=== PATIENT | female | born 1950 | race Caucasian/White ===

== ENCOUNTER → 2016-03-02 | Outpatient (CLI) | payer OTHER ==
[~2016-03-02] MED LIST: /ADVA50050 IN; ASPI325T OR; CELE20TA OR; LISI20TA5 OR; PERC5TAB8 OR; pravachol OR
--- NOTE | 2016-03-02 14:26 | REPMRS ---
Patient History The patient states she has not had a clinical breast exam in over a year. Patient is postmenopausal. Family history of colorectal cancer in mother at age 70. Digital Woman Screen Mammo: March 02, 2016 - Exam #: [id number] Bilateral CC and MLO view(s) were taken. Technologist: Carlota Dan, Technologist Prior study comparison: December 10, 2014, digital woman screen mammo performed at [facility] to [facility]. January 23, 2008, bilateral screening mammogram performed at [facility]. FINDINGS: There are scattered fibroglandular densities. There has been no change in the appearance of the mammogram from the prior studies. There is a mild amount of scattered fibroglandular density which is fairly symmetric. There is no interval development of dominant mass, architectural distortion, or clustered microcalcification suggestive of malignancy. ASSESSMENT: BI-RADS/ACR category 1 mammogram. Negative. Recommendation Routine screening mammogram in 1 year (for women over age 40). This mammogram was interpreted with the aid of an FDA-approved computer-aided dectection system. Electronically Signed By: Farhad Givens MD 03/02/16 1542
== END ==
LOC: M WHC 12:51
PROVIDERS: ATTEND Physician Assistant
DX: Z12.31 Encounter for screening mammogram for malignant neoplasm of breast (principal)

== ENCOUNTER → 2016-05-24 | Outpatient (REF) | payer OTHER ==
[2016-05-24 15:39] LABS: ALBUMIN 3.7 GM/DL (3.2-5.2); ALBUMIN/GLOBULIN RATIO 1.03 (1.00-1.93); ALKALINE PHOSPHATASE 90 U/L (45-117); ALT/SGPT 47 U/L (12-78); ANION GAP 8 MEQ/L (8-16); AST/SGOT 48 U/L (15-37); BILIRUBIN,TOTAL 0.4 MG/DL (0.2-1.0); BLOOD UREA NITROGEN 13 MG/DL (7-18); CARBON DIOXIDE LEVEL 32 MEQ/L (21-32); CHLORIDE LEVEL 95 MEQ/L (98-107); CHOLESTEROL LEVEL 203 MG/DL (<200); GLOMERULAR FILTRATION RATE > 60.0 (>45); GLUCOSE, FASTING 98 MG/DL (80-110); POTASSIUM SERUM 4.1 MEQ/L (3.5-5.1); SODIUM LEVEL 135 MEQ/L (136-145); TOTAL PROTEIN 7.3 GM/DL (6.4-8.2); TRIGLYCERIDES LEVEL 212 MG/DL (<150)
== END ==
LOC: M SFHCLACO 09:34
PROVIDERS: ATTEND Physician Assistant
DX: I10 Essential (primary) hypertension (principal); E78.2 Mixed hyperlipidemia

== ENCOUNTER → 2016-08-30 | Outpatient (REF) | payer OTHER ==
[2016-08-30 15:29] LABS: ALKALINE PHOSPHATASE 78 U/L (45-117); ALT/SGPT 49 U/L (12-78); ANION GAP 6 MEQ/L (8-16); AST/SGOT 54 U/L (15-37); BILIRUBIN,TOTAL 0.6 MG/DL (0.2-1.0); BLOOD UREA NITROGEN 12 MG/DL (7-18); CALCIUM LEVEL 8.9 MG/DL (8.8-10.2); CARBON DIOXIDE LEVEL 33 MEQ/L (21-32); CHLORIDE LEVEL 98 MEQ/L (98-107); CHOLESTEROL LEVEL 222 MG/DL (<200); CREATININE FOR GFR 0.62 MG/DL (0.55-1.02); GLOMERULAR FILTRATION RATE > 60.0 (>45); GLUCOSE, FASTING 93 MG/DL (80-110); POTASSIUM SERUM 3.8 MEQ/L (3.5-5.1); SODIUM LEVEL 137 MEQ/L (136-145); TRIGLYCERIDES LEVEL 269 MG/DL (<150)
[2016-08-30 15:30] LABS: ALBUMIN 3.4 GM/DL (3.2-5.2); ALBUMIN/GLOBULIN RATIO 0.87 (1.00-1.93); TOTAL PROTEIN 7.3 GM/DL (6.4-8.2)
== END ==
LOC: M SFHCLACO 09:31
PROVIDERS: ATTEND Physician Assistant
DX: I10 Essential (primary) hypertension (principal); E78.2 Mixed hyperlipidemia

== ENCOUNTER → 2016-12-27 | Outpatient (REF) | payer OTHER ==
[2016-12-27 15:12] LABS: ALBUMIN 3.6 GM/DL (3.2-5.2); ALKALINE PHOSPHATASE 119 U/L (45-117); ALT/SGPT 42 U/L (12-78); ANION GAP 10 MEQ/L (8-16); AST/SGOT 63 U/L (7-37); BILIRUBIN,TOTAL 0.5 MG/DL (0.2-1.0); BLOOD UREA NITROGEN 6 MG/DL (7-18); CALCIUM LEVEL 9.2 MG/DL (8.8-10.2); CARBON DIOXIDE LEVEL 30 MEQ/L (21-32); CHLORIDE LEVEL 97 MEQ/L (98-107); CHOLESTEROL LEVEL 256 MG/DL (<200); CREATININE FOR GFR 0.66 MG/DL (0.55-1.02); GLOMERULAR FILTRATION RATE > 60.0 (>45); GLUCOSE, FASTING 110 MG/DL (80-110); POTASSIUM SERUM 3.5 MEQ/L (3.5-5.1); SODIUM LEVEL 137 MEQ/L (136-145); TOTAL PROTEIN 7.6 GM/DL (6.4-8.2); TRIGLYCERIDES LEVEL 196 MG/DL (<150)
== END ==
LOC: M SFHCLACO 09:58
PROVIDERS: ATTEND Physician Assistant
DX: I10 Essential (primary) hypertension (principal); E78.2 Mixed hyperlipidemia

== ENCOUNTER → 2017-04-27 | Outpatient (REF) | payer OTHER ==
[2017-04-27 15:13] LABS: ALBUMIN 3.4 GM/DL (3.2-5.2); ALBUMIN/GLOBULIN RATIO 0.85 (1.00-1.93); ALKALINE PHOSPHATASE 93 U/L (45-117); ALT/SGPT 44 U/L (12-78); ANION GAP 7 MEQ/L (8-16); AST/SGOT 58 U/L (7-37); BILIRUBIN,TOTAL 0.4 MG/DL (0.2-1.0); BLOOD UREA NITROGEN 11 MG/DL (7-18); CALCIUM LEVEL 8.6 MG/DL (8.8-10.2); CARBON DIOXIDE LEVEL 32 MEQ/L (21-32); CHLORIDE LEVEL 96 MEQ/L (98-107); CHOLESTEROL LEVEL 212 MG/DL (<200); CHOLESTEROL RISK RATIO 4.608 (<5); CREATININE FOR GFR 0.67 MG/DL (0.55-1.30); GLOMERULAR FILTRATION RATE > 60.0 (>45); GLUCOSE, FASTING 91 MG/DL (70-100); HDL CHOLESTEROL 46 MG/DL (>40); LDL CHOLESTEROL 101.6 MG/DL (<100); NON-HDL-C 166 MG/DL; POTASSIUM SERUM 3.7 MEQ/L (3.5-5.1); SODIUM LEVEL 135 MEQ/L (136-145); TOTAL PROTEIN 7.4 GM/DL (6.4-8.2); TRIGLYCERIDES LEVEL 322 MG/DL (<150)
== END ==
LOC: M SFHCLACO 08:14
DX: E78.2 Mixed hyperlipidemia (principal); I10 Essential (primary) hypertension
CPT/HCPCS: 80053

== ENCOUNTER → 2017-07-27 | Outpatient (REF) | payer OTHER ==
[2017-07-27 15:05] LABS: ALBUMIN 3.5 GM/DL (3.2-5.2); ALBUMIN/GLOBULIN RATIO 0.95 (1.00-1.93); ALKALINE PHOSPHATASE 99 U/L (45-117); ALT/SGPT 41 U/L (12-78); ANION GAP 8 MEQ/L (8-16); AST/SGOT 49 U/L (7-37); BILIRUBIN,TOTAL 0.3 MG/DL (0.2-1.0); BLOOD UREA NITROGEN 13 MG/DL (7-18); CARBON DIOXIDE LEVEL 30 MEQ/L (21-32); CHLORIDE LEVEL 99 MEQ/L (98-107); CHOLESTEROL LEVEL 193 MG/DL (<200); CHOLESTEROL RISK RATIO 3.711 (<5); CREATININE FOR GFR 0.71 MG/DL (0.55-1.30); GLOMERULAR FILTRATION RATE > 60.0 (>45); GLUCOSE, FASTING 84 MG/DL (70-100); HDL CHOLESTEROL 52 MG/DL (>40); LDL CHOLESTEROL 103.2 MG/DL (<100); NON-HDL-C 141 MG/DL; POTASSIUM SERUM 3.9 MEQ/L (3.5-5.1); SODIUM LEVEL 137 MEQ/L (136-145); TOTAL PROTEIN 7.2 GM/DL (6.4-8.2); TRIGLYCERIDES LEVEL 189 MG/DL (<150)
== END ==
LOC: M SFHCLACO 08:26
DX: I10 Essential (primary) hypertension (principal); E78.2 Mixed hyperlipidemia
CPT/HCPCS: 80053

== ENCOUNTER → 2017-10-13 | Outpatient (REF) | payer OTHER | LOC: M SFHCLACO 15:16 | DX: K52.9 Noninfective gastroenteritis and colitis, unspecified (principal) | CPT/HCPCS: 87507 ==

== ENCOUNTER → 2018-02-22 | Outpatient (CLI) | payer OTHER ==
--- NOTE | 2018-02-22 14:35 | REPMRS ---
Patient History The patient states she has not had a clinical breast exam in over a year. Patient is postmenopausal. Family history of colorectal cancer at age 70 in mother, breast cancer at age 73 in sister. Digital Woman Screen Mammo: February 22, 2018 - Exam #: [id number] Bilateral CC and MLO view(s) were taken. Technologist: Letha Rosado, Technologist Prior study comparison: March 02, 2016, digital woman screen mammo performed at [facility] to [facility]. December 10, 2014, digital woman screen mammo performed at [facility] to [facility]. January 23, 2008, bilateral screening mammogram performed at [facility]. FINDINGS: There are scattered fibroglandular densities. There has been no change in the appearance of the mammogram from the prior studies. There is a mild amount of scattered fibroglandular density which is fairly symmetric. There is no interval development of dominant mass, architectural distortion, or clustered microcalcification suggestive of malignancy. 3-D tomosynthesis shows no additional findings. Assessment: BI-RADS/ACR category 1 mammogram. Negative. Recommendation Routine screening mammogram of both breasts in 1 year (for women over age 40). This patient's Lifetime Breast Cancer RIsk is estimated at 8.8 %. This mammogram was interpreted with the aid of an FDA-approved computer-aided dectection system. Electronically Signed By: Farhad Givens MD 02/22/18 0213
== END ==
LOC: M WHC 10:21
PROVIDERS: ATTEND Physician Assistant
DX: Z12.31 Encounter for screening mammogram for malignant neoplasm of breast (principal); Z78.0 Asymptomatic menopausal state; Z80.0 Family history of malignant neoplasm of digestive organs; Z80.3 Family history of malignant neoplasm of breast

== ENCOUNTER → 2021-10-21 | Outpatient (CLI) | payer OTHER ==
[~2021-10-21] MED LIST changes: -/ADVA50050 IN; +ADVA1AER2 IN
== END ==
LOC: M ADAMS 13:57
PROVIDERS: ATTEND Physician Assistant
DX: M25.511 Pain in right shoulder (principal); R93.7 Abnormal findings on diagnostic imaging of other parts of musculoskeletal system

== ENCOUNTER → 2021-11-30 | Outpatient (CLI) | payer OTHER | LOC: M PLAIMG 06:42 | PROVIDERS: ATTEND Orthopaedic Surgery | DX: M75.101 Unspecified rotator cuff tear or rupture of right shoulder, not specified as traumatic (principal) ==

== ENCOUNTER → 2021-12-02 | Outpatient (CLI) | payer OTHER | LOC: M WHC 10:29 | PROVIDERS: ATTEND Physician Assistant | DX: Z12.31 Encounter for screening mammogram for malignant neoplasm of breast (principal) ==

== ENCOUNTER → 2022-01-10 | Outpatient (CLI) | payer OTHER ==
[~2022-01-10] MED LIST changes: +BETA0.0543 TOP; +CALCCAP4 PO; +CINN500C15 PO; +CITA40TA7 PO; +CYCL-707 PO; +FLAX100016 PO; +FLUT1BLS5 INH; +LOSA100T45 PO; +MELO7.5T35 PO; +OMEP40CA5 PO; +POTA-151 PO; +PRAV40TA2 PO; +SPIR-10 PO
== END ==
LOC: M ADAMS 10:10
PROVIDERS: ATTEND Physician Assistant
DX: J44.9 Chronic obstructive pulmonary disease, unspecified (principal)

== ENCOUNTER → 2022-01-10 | Outpatient (CLI) | payer OTHER ==
[~2022-01-10] MED LIST changes: +PERC5TAB12 PO
== END ==
LOC: M LABSMTC 09:35
PROVIDERS: ATTEND Anesthesiology
DX: Z01.818 Encounter for other preprocedural examination (principal); Z11.52 Encounter for screening for COVID-19

== ENCOUNTER → 2022-01-10 | Outpatient (REF) | payer OTHER ==
[~2022-01-10] MED LIST changes: -PERC5TAB12 PO
[2022-01-10 13:56] LABS: HEMATOCRIT 41.9 % (36.0-47.0); MEAN CORPUSCULAR HEMOGLOBIN 32.1 pg (27.0-33.0); MEAN CORPUSCULAR HGB CONC 33.4 g/dl (32.0-36.5); MEAN CORPUSCULAR VOLUME 96.1 fl (80.0-96.0); PLATELET COUNT, AUTOMATED 292 10^3/uL (150-450); RED BLOOD COUNT 4.36 10^6/uL (4.00-5.40); WHITE BLOOD COUNT 7.3 10^3/uL (4.0-10.0)
[2022-01-10 14:30] LABS: BLOOD UREA NITROGEN 16 MG/DL (9-23); CARBON DIOXIDE LEVEL 27 MMOL/L (20-31); CHLORIDE LEVEL 93 MMOL/L (98-107); CREATININE FOR GFR 0.64 MG/DL (0.55-1.30); GLOMERULAR FILTRATION RATE > 60.0 (>39); GLUCOSE, FASTING 89 MG/DL (74-106); POTASSIUM SERUM 5.2 MMOL/L (3.5-5.1); SODIUM LEVEL 127 MMOL/L (136-145)
== END ==
LOC: M SFHCADAM 10:01
PROVIDERS: ATTEND Physician Assistant
DX: J44.9 Chronic obstructive pulmonary disease, unspecified (principal)

== ENCOUNTER 2022-01-12 08:22 | Day surgery (SDC) | payer OTHER ==
[~2022-01-12] VITALS: Ht 167.6 cm; Wt 61.1 kg
[~2022-01-12 08:22] MED LIST changes: +ceFAZolin SOD 2 GM in IV 1 EA IV ONE; +oxyCODONE 5MG TAB PO ONE
[2022-01-12] MEDS ORDERED: LR 1,000 ML IV SCH ×2 (08:50→13:25)
[2022-01-12] MEDS ORDERED: ALBUTEROL SULFATE 2.5 MG/0.5 ML INH NEB SOLN INH ONE (09:40)
[2022-01-12] MEDS ORDERED: EPINEPHrine INJ 1 MG/ML 1ML AMP PN ONE (09:40)
[2022-01-12] MEDS ORDERED: fentaNYL 100 MCG/2 ML INJECTION IV PRN ×2 (09:40→13:25)
[2022-01-12] MEDS ORDERED: dexameTHASONE 10MG/1ML VIAL PRES.FREE (J1100 PER 1MG) PN ONE (09:40)
[2022-01-12] MEDS ORDERED: MIDAZOLAM INJ 2MG/2ML VIAL (J2250 PER 1MG) IV PRN (09:40)
[2022-01-12] MEDS ORDERED: ROPIvacaine 0.5% 30ML INJECTION (J2795 PER 1MG) PN ONE (09:40)
[2022-01-12] MEDS ORDERED: LIDOCAINE 2% INJ 100 MG/5 ML SYRINGE As Ordered ONE ×2 (10:17→11:02)
[2022-01-12] MEDS ORDERED: propofoL 200 MG/20 ML VIAL As Ordered ONE (10:17)
[2022-01-12] MEDS ORDERED: ROCURONIUM BROMIDE 50 MG/5 ML VIAL As Ordered ONE (10:17)
[2022-01-12] MEDS ORDERED: fentaNYL 100 MCG/2 ML INJECTION As Ordered ONE (10:20)
[2022-01-12] MEDS ORDERED: EPINEPHrine 1MG/ML INJ 30ML MD-VIAL As Ordered ONE (10:57)
[2022-01-12] MEDS ORDERED: LIDOCAINE 1% SDV 30ML VIAL As Ordered ONE (10:57)
[2022-01-12] MEDS ORDERED: LIDOCAINE 2% 100MG/5ML SDV (FOR ANES.) As Ordered ONE (11:02)
[2022-01-12] MEDS ORDERED: TRANEXAMIC ACID 100 MG/ML 10ML VIAL As Ordered ONE (11:33)
[2022-01-12] MEDS ORDERED: HYDROMORPHONE HCL 0.5 MG/ 0.5 ML SYRINGE (J1170 PER 1) IV PRN (13:25)
[2022-01-12] MEDS ORDERED: oxyCODONE 5MG TAB PO PRN (13:25)
[2022-01-12] MEDS ORDERED: ONDANSETRON 4MG 2ML VIAL IV PRN (13:25)
[2022-01-12] MEDS ORDERED: PERC5TAB12 PO (13:41)
[2022-01-12 15:20] VITALS: BP 135/65
== END 2022-01-12 15:30 | disposition home or self-care (01) ==
LOC: M SDC 08:22
PROVIDERS: ATTEND Orthopaedic Surgery
DX: M75.121 Complete rotator cuff tear or rupture of right shoulder, not specified as traumatic (principal); M19.011 Primary osteoarthritis, right shoulder; J44.9 Chronic obstructive pulmonary disease, unspecified; I10 Essential (primary) hypertension; E78.2 Mixed hyperlipidemia; F32.A Depression, unspecified; J45.909 Unspecified asthma, uncomplicated; F17.210 Nicotine dependence, cigarettes, uncomplicated; Z79.899 Other long term (current) drug therapy; Z79.51 Long term (current) use of inhaled steroids
CPT/HCPCS: 29826; 29827; 64415; J0171; J0690; J2250; J3010

== ENCOUNTER → 2022-05-17 | Outpatient (CLI) | payer OTHER ==
[~2022-05-17] MED LIST changes: +PERC5TAB12 PO; -ceFAZolin SOD 2 GM in IV 1 EA IV ONE; -oxyCODONE 5MG TAB PO ONE
== END ==
LOC: M SOG 08:47
PROVIDERS: ATTEND Physician Assistant
DX: M75.121 Complete rotator cuff tear or rupture of right shoulder, not specified as traumatic (principal)

== ENCOUNTER → 2022-06-10 | Outpatient (CLI) | payer OTHER ==
[~2022-06-10] MED LIST changes: +BUPR-71 PO; +CURC500C PO; +IRON27TA2 PO; +TIOT18INH INH; +VITMTA PO; +beet root PO
== END ==
LOC: M RAD 18:27
PROVIDERS: ATTEND Physician Assistant
DX: M25.811 Other specified joint disorders, right shoulder (principal)

== ENCOUNTER 2022-06-22 06:15 | Observation (INO) | payer OTHER ==
[~2022-06-22] VITALS: Ht 167.6 cm; Wt 62.1 kg
[~2022-06-22 06:15] MED LIST changes: -LOSA100T45 PO; +LOSA100T46 PO
[2022-06-22] MEDS ORDERED: MIDAZOLAM INJ 2MG/2ML VIAL As Ordered ONE (06:59)
[2022-06-22] MEDS ORDERED: ACETAMINOPHEN 1000MG 100ML IV BAG As Ordered ONE (06:59)
[2022-06-22] MEDS ORDERED: KETOROLAC 60MG 2ML VIAL As Ordered ONE (06:59)
[2022-06-22] MEDS ORDERED: ONDANSETRON 4MG 2ML VIAL As Ordered ONE (06:59)
[2022-06-22] MEDS ORDERED: fentaNYL 100 MCG/2 ML INJECTION As Ordered ONE (06:59)
[2022-06-22] MEDS ORDERED: SUGAMMADEX SODIUM 500 MG/5 ML VIAL (BRIDION) As Ordered ONE (07:00)
[2022-06-22] MEDS ORDERED: LIDOCAINE 2% 100MG/5ML SDV (FOR ANES.) As Ordered ONE (07:00)
[2022-06-22] MEDS ORDERED: LR 1,000 ML IV SCH (07:00)
[2022-06-22] MEDS ORDERED: propofoL 200 MG/20 ML VIAL As Ordered ONE (07:00)
[2022-06-22] MEDS ORDERED: ROCURONIUM BROMIDE 50MG/5ML VIAL As Ordered ONE (07:00)
[2022-06-22] MEDS ORDERED: TRANEXAMIC ACID 100 MG/ML 10ML VIAL As Ordered ONE ×2 (07:23→09:56)
[2022-06-22] MEDS ORDERED: SODIUM BICARBONATE 4.2% INJ 10ML SYRINGE As Ordered ONE (07:23)
[2022-06-22] MEDS ORDERED: VANCOMYCIN 1000MG/20ML VIAL As Ordered ONE (07:24)
[2022-06-22] MEDS ORDERED: LIDOCAINE W/EPINEPHRINE 1% 20ML VIAL As Ordered ONE (07:24)
[2022-06-22] MEDS ORDERED: ceFAZolin SOD 2 GM in IV 1 EA IV ONE (07:40)
[2022-06-22] MEDS ORDERED: ceFAZolin 2 GM/D5W 50 ML IV BAG As Ordered ONE (07:44)
[2022-06-22] MEDS ORDERED: VASOPRESSIN INJ 20UNITS/ML 1ML VIAL As Ordered ONE (08:06)
[2022-06-22] MEDS ORDERED: HYDROmorphone HCL 2MG/ML 1ML VIAL As Ordered ONE (08:13)
[2022-06-22] MEDS ORDERED: oxyCODONE 5MG TAB PO PRN ×2 (10:20→10:35)
[2022-06-22] MEDS ORDERED: MORPHINE 2 MG/ML 1ML VIAL IV PRN (10:20)
[2022-06-22] MEDS ORDERED: ONDANSETRON 4MG 2ML VIAL IV PRN (10:20)
[2022-06-22] MEDS ORDERED: ACETAMINOPHEN TAB 650MG DOSE (2X325MG) PO PRN (10:35)
[2022-06-22] MEDS ORDERED: MORPHINE 4 MG/ML 1ML VIAL IV PRN (10:35)
[2022-06-22] MEDS ORDERED: EPINEPHrine INJ 1 MG/ML 1ML AMP PN ONE (11:10)
[2022-06-22] MEDS ORDERED: fentaNYL 100 MCG/2 ML INJECTION IV PRN (11:10)
[2022-06-22] MEDS ORDERED: MIDAZOLAM INJ 2MG/2ML VIAL IV PRN (11:10)
[2022-06-22] MEDS ORDERED: LIDOCAINE 1% SDV 5ML VIAL PN ONE (11:10)
[2022-06-22] MEDS ORDERED: ROPIvacaine 0.5% 30ML VIAL PN ONE (11:10)
[2022-06-22] MEDS: fentaNYL 100 MCG/2 ML INJECTION IV PRN ×4 (11:33→11:48)
[2022-06-22] MEDS ORDERED: IBUPROFEN 600MG TAB PO PRN (13:00)
[2022-06-22] MEDS ORDERED: PERC5TAB12 PO (14:17)
[2022-06-22 15:55] VITALS: BP 128/70
[2022-06-22] MEDS ORDERED: ceFAZolin SOD 1 GM in D5W MINI-BAG PLUS 50 ML IV SCH (16:00)
== END 2022-06-22 18:38 | disposition home or self-care (01) ==
LOC: M SDC 06:15 → M MS5PR 11:53 → M ED INP 18:37
PROVIDERS: ADMIT Internal Medicine Nephrology; ATTEND Orthopaedic Surgery Hand Surgery
DX: M12.811 Other specific arthropathies, not elsewhere classified, right shoulder (principal); J44.9 Chronic obstructive pulmonary disease, unspecified; I10 Essential (primary) hypertension; E78.2 Mixed hyperlipidemia; F32.A Depression, unspecified; M51.27 Other intervertebral disc displacement, lumbosacral region; K21.9 Gastro-esophageal reflux disease without esophagitis; J30.2 Other seasonal allergic rhinitis; F17.210 Nicotine dependence, cigarettes, uncomplicated; Z79.899 Other long term (current) drug therapy; Z79.51 Long term (current) use of inhaled steroids
CPT/HCPCS: 23472; 73020; 88304; 88311; C1713; C1773; C1776; G0378; J0131; J0171; J0690; J1100; J1170; J1885; J2250; J2405; J2795; J3010

== ENCOUNTER → 2022-06-30 | Outpatient (CLI) | payer OTHER | LOC: M SOG 08:17 | PROVIDERS: ATTEND Physician Assistant | DX: M25.811 Other specified joint disorders, right shoulder (principal) ==

== ENCOUNTER → 2022-10-06 | Outpatient (CLI) | payer OTHER | LOC: M SOG 08:17 | PROVIDERS: ATTEND Physician Assistant | DX: M25.811 Other specified joint disorders, right shoulder (principal) ==

== ENCOUNTER → 2023-02-08 | Outpatient (REF) | payer OTHER | LOC: M SFHCADAM 16:15 | PROVIDERS: ATTEND Physician Assistant | DX: R19.7 Diarrhea, unspecified (principal) ==

== ENCOUNTER → 2023-08-23 | Outpatient (CLI) | payer OTHER | LOC: M WHC 09:31 | PROVIDERS: ATTEND Physician Assistant | DX: Z12.31 Encounter for screening mammogram for malignant neoplasm of breast (principal); R92.313 Mammographic fatty tissue density, bilateral breasts; Z13.820 Encounter for screening for osteoporosis; M85.88 Other specified disorders of bone density and structure, other site; M85.851 Other specified disorders of bone density and structure, right thigh; M85.852 Other specified disorders of bone density and structure, left thigh ==

== ENCOUNTER → 2023-10-04 | Outpatient (CLI) | payer OTHER | LOC: M SOG 07:55 | PROVIDERS: ATTEND Physician Assistant | DX: M25.561 Pain in right knee (principal); M25.562 Pain in left knee ==

== ENCOUNTER → 2023-11-23 | Outpatient (CLI) | payer OTHER | LOC: M RAD 14:57 | PROVIDERS: ATTEND Physician Assistant | DX: F17.211 Nicotine dependence, cigarettes, in remission (principal) ==

== ENCOUNTER → 2024-03-26 | Outpatient (CLI) | payer OTHER | LOC: M ADAMS 11:12 | PROVIDERS: ATTEND Physician Assistant | DX: L97.329 Non-pressure chronic ulcer of left ankle with unspecified severity (principal) ==

== ENCOUNTER → 2024-04-03 | Outpatient (CLI) | payer OTHER ==
[~2024-04-03] MED LIST changes: +ALEN10TA5 PO; +PROB250C PO
== END ==
LOC: M SOG 11:14
PROVIDERS: ATTEND Orthopaedic Surgery
DX: M25.572 Pain in left ankle and joints of left foot (principal)

== ENCOUNTER 2024-04-05 06:10 | Day surgery (SDC) | payer OTHER ==
[~2024-04-05] VITALS: Ht 167.6 cm; Wt 62.6 kg
[2024-04-05] MEDS ORDERED: LR 1,000 ML IV SCH (06:30)
[2024-04-05] MEDS ORDERED: propofoL 200 MG/20 ML VIAL As Ordered ONE (07:22)
[2024-04-05] MEDS ORDERED: fentaNYL 100 MCG/2 ML INJECTION As Ordered ONE (07:22)
[2024-04-05] MEDS ORDERED: dexmedeTOMIDine (4MCG/ML)200MCG/50ML BTL (PRECEDEX) As Ordered ONE (07:22)
[2024-04-05] MEDS ORDERED: MIDAZOLAM INJ 2MG/2ML VIAL As Ordered ONE (07:22)
[2024-04-05] MEDS ORDERED: LIDOCAINE 2% 100MG/5ML SDV (FOR ANES.) As Ordered ONE (07:34)
[2024-04-05] MEDS ORDERED: ACETAMINOPHEN 1000MG/100ML IV BAG As Ordered ONE (07:46)
[2024-04-05] MEDS ORDERED: PHENYLephrine 500MCG 5ML (100MCG/ML) SYRINGE As Ordered ONE (07:56)
[2024-04-05] MEDS: ceFAZolin 2 GM/D5W 50 ML IV BAG As Ordered ONE (08:10)
[2024-04-05] MEDS ORDERED: fentaNYL 100 MCG/2 ML INJECTION IV PRN (08:30)
[2024-04-05] MEDS ORDERED: oxyCODONE 5MG TAB PO PRN (08:30)
[2024-04-05] MEDS ORDERED: ONDANSETRON 4MG 2ML VIAL IV PRN (08:30)
[2024-04-05] MEDS ORDERED: OXYC1TAB23 PO (08:48)
[2024-04-05 09:53] VITALS: BP 150/95; TEMP 97.8; O2SAT 95
== END 2024-04-05 09:53 | disposition home or self-care (01) ==
LOC: M SDC 06:10
PROVIDERS: ATTEND Orthopaedic Surgery
DX: T84.197A Other mechanical complication of internal fixation device of bone of left lower leg, initial encounter (principal); Y79.2 Prosthetic and other implants, materials and accessory orthopedic devices associated with adverse incidents; I10 Essential (primary) hypertension; J44.9 Chronic obstructive pulmonary disease, unspecified; E78.00 Pure hypercholesterolemia, unspecified; F17.210 Nicotine dependence, cigarettes, uncomplicated; K21.9 Gastro-esophageal reflux disease without esophagitis; Z79.899 Other long term (current) drug therapy; Z79.1 Long term (current) use of non-steroidal anti-inflammatories (NSAID)
CPT/HCPCS: 20680; 76000; 87070; 87075; 87077; 87186; 87205; 93005; J0131; J0690; J1100; J2250; J2371; J3010

== ENCOUNTER → 2024-04-15 | Outpatient (CLI) | payer OTHER ==
[~2024-04-15] MED LIST changes: +OXYC1TAB23 PO
== END ==
LOC: M SOG 07:54
PROVIDERS: ATTEND Physician Assistant
DX: S82.85 Trimalleolar fracture of lower leg (principal)

== ENCOUNTER → 2024-05-03 | Outpatient (CLI) | payer OTHER | LOC: M SOG 07:49 | PROVIDERS: ATTEND Orthopaedic Surgery | DX: S82.85 Trimalleolar fracture of lower leg (principal) ==

== ENCOUNTER → 2024-05-29 | Outpatient (CLI) | payer OTHER | LOC: M SOG 07:50 | PROVIDERS: ATTEND Physician Assistant | DX: S82.85 Trimalleolar fracture of lower leg (principal) ==

== ENCOUNTER → 2024-12-20 | Outpatient (CLI) | payer OTHER ==
[~2024-12-20] MED LIST changes: -PRAV40TA2 PO; +PRAV40TA85 PO
== END ==
LOC: M SOG 07:20
PROVIDERS: ATTEND Physician Assistant
DX: M25.561 Pain in right knee (principal); M25.562 Pain in left knee; M11.161 Familial chondrocalcinosis, right knee; M11.162 Familial chondrocalcinosis, left knee